=== PATIENT | female | born 1990 | race Caucasian/White ===

== ENCOUNTER 2018-03-27 02:32 | Emergency (ER) | payer OTHER ==
[2018-03-27 02:57] VITALS: BP 105/69; PULSE 76; RESP 20; TEMP 98
--- NOTE | 2018-03-27 03:50 | ED ---
General Adult HPI - General Chief complaint: Dental/Oral Stated complaint: post op issue Time Seen by Provider: 03/27/18 03:02 Source: patient, RN notes reviewed Mode of arrival: ambulatory Limitations: no limitations - History of Present Illness Initial comments: 27-year-old female presents to the emergency department for a chief complaint of bleeding after dental procedure earlier tonight. Patient states she was at home when she bent over and noticed blood draining from her mouth. Patient states she had a gum graft earlier today and had tissue removed from the roof of her mouth. She states she has not had significant pain but was concerned about the bleeding. She states that the bleeding is now controlled. Denies any fevers or chills. Denies any trauma to the mouth. Patient has no other complaints at this time including shortness of breath, chest pain, abdominal pain, nausea or vomiting, headache, or visual changes. - Related Data Home Medications Medication Instructions Recorded Confirmed No Known Home Medications 03/27/18 03/27/18 Allergies Allergy/AdvReac Type Severity Reaction Status Date / Time cephalexin [From Keflex] Allergy Rash/Hives Verified 03/27/18 02:58 codeine Allergy Anaphylaxis Verified 03/27/18 02:58 Penicillins Allergy Rash/Hives Verified 03/27/18 02:58 Review of Systems ROS Statement: Those systems with pertinent positive or pertinent negative responses have been documented in the HPI. ROS Other: All systems not noted in ROS Statement are negative. Past Medical History Past Medical History: No Reported History History of Any Multi-Drug Resistant Organisms: None Reported Additional Past Surgical History / Comment(s): Oral surgeries Past Psychological History: Depression Smoking Status: Former smoker Past Alcohol Use History: Occasional Past Drug Use History: None Reported General Exam Limitations: no limitations General appearance: alert, in no apparent distress Head exam: Present: atraumatic, normocephalic, normal inspection Eye exam: Present: normal appearance, PERRL, EOMI. Absent: scleral icterus, conjunctival injection, periorbital swelling ENT exam: Present: normal oropharynx (Patient has 2 areas to the roof of the mouth where come graft was taken. Areas are not bleeding at this time. Bleeding currently controlled.), mucous membranes moist Neck exam: Present: normal inspection, full ROM. Absent: tenderness, meningismus, lymphadenopathy Respiratory exam: Present: normal lung sounds bilaterally. Absent: respiratory distress, wheezes, rales, rhonchi, stridor Cardiovascular Exam: Present: regular rate, normal rhythm, normal heart sounds. Absent: systolic murmur, diastolic murmur, rubs, gallop, clicks Neurological exam: Present: alert, oriented X3, CN II-XII intact Psychiatric exam: Present: normal affect, normal mood Course Vital Signs 03/27/18 02:50 Temperature 98 F Pulse Rate 76 Respiratory 20 Rate Blood Pressure 105/69 O2 Sat by Pulse 99 Oximetry Medical Decision Making - Medical Decision Making 27-year-old female presents to the emergency department for a chief complaint of bleeding after dental procedure. Patient states she had a a come graft performed earlier today. She states there are 2 areas of her mouth where tissue was removed to apply to the gumline. Patient states that when she was bending over she started to bleed. Patient states now the bleeding has stopped. On exam there is no active bleeding. Patient is well-appearing. She was given cause to apply to the area if bleeding starts again and educated to use pressure. She will follow up with dentist tomorrow. She will return if she has any worsening symptoms. Disposition Clinical Impression: Surgical wound hemorrhage after dental procedure Disposition: HOME SELF-CARE Condition: Good Instructions: Toothache (ED) Additional Instructions: Please follow up with dentist tomorrow. Please apply gauze if area starts to bleed again. Please return to the emergency department if you have any worsening symptoms. Is patient prescribed a controlled substance at d/c from ED?: No Referrals: Vitaly Dodson DO [Primary Care Provider] - 1-2 days Time of Disposition: 03:50
== END 2018-03-27 04:01 | disposition home or self-care (01) ==
LOC: EC 02:32
DX: K91.840 Postprocedural hemorrhage of a digestive system organ or structure following a digestive system procedure (principal); Z98.890 Other specified postprocedural states; Z87.891 Personal history of nicotine dependence; Z88.1 Allergy status to other antibiotic agents; Z88.5 Allergy status to narcotic agent; Z88.0 Allergy status to penicillin
CPT/HCPCS: 99283